=== PATIENT | female | born 1960 | race Two or more races ===

== ENCOUNTER 2021-08-14 16:11 | Inpatient (IN) | payer OTHER ==
[2021-08-14] MEDS ORDERED: IBUPROFEN 400 MG TABLET (FP) PO PRN (18:34)
[2021-08-14] MEDS ORDERED: MAGNESIUM CITRATE 300 ML BOTTLE PO PRN (18:34)
[2021-08-14] MEDS ORDERED: METHOCARBAMOL 500 MG TABLET PO PRN (18:34)
[2021-08-14] MEDS ORDERED: MAGNESIUM HYDROX 2400MG/30ML ORAL SUSPENSION 30 ML CUP PO PRN (18:34)
[2021-08-14] MEDS ORDERED: BISMUTH SUBSALICYLATE 524 MG/30 ML PO PRN (18:34)
[2021-08-14] MEDS ORDERED: MAG HYDROX/AL HYDROX/SIMETH 30 ML UNIT-DOSE CUP PO PRN (18:34)
[2021-08-14] MEDS ORDERED: MENTHOL/PHENOL 1 EACH UD MM PRN (18:34)
[2021-08-14] MEDS ORDERED: ONDANSETRON *ODT* 4 MG TABLET SL PRN (18:34)
[2021-08-14] MEDS ORDERED: ACETAMINOPHEN 325 MG TABLET (FP) PO PRN ×2 (18:34)
[2021-08-14] MEDS ORDERED: hydrOXYzine PAMOATE 25 MG CAPSULE (FP) PO ONE (21:03)
[2021-08-14] MEDS: hydrOXYzine PAMOATE 25 MG CAPSULE (FP) PO PRN ×2 (21:15→22:15)
[2021-08-14 21:31] VITALS: BMI 25.7
[2021-08-14] MEDS ORDERED: MELATONIN 5 MG TABLETS PO SCH (22:00)
[2021-08-14] MEDS ORDERED: THIAMINE HCL 100 MG TABLET (FP) PO SCH (22:00)
[2021-08-15] MEDS ORDERED: hydrOXYzine PAMOATE 50 MG CAPSULE (FP) PO ONE (00:16)
[2021-08-15] MEDS ORDERED: NITROGLYCERIN SUBLINGUAL 1/150 0.4 MG TAB SL ONE (01:11)
[2021-08-15 02:27] VITALS: BP 176/99; PULSE 81; TEMP 97.7
[2021-08-15] MEDS ORDERED: PRENATAL VITAMINS W/ FOLIC ACID TABLET (FP) PO SCH (10:00)
== END 2021-08-15 07:42 | disposition short-term general hospital (02) | DRG 897 ==
LOC: YASAS 16:11 → Y3N 21:03
PROVIDERS: ADMIT Allergy & Immunology; ATTEND Allergy & Immunology
PROC: HZ2ZZZZ Detoxification Services for Substance Abuse Treatment (ICD-10-PCS; principal; 2021-08-14)
DX: F13.230 Sedative, hypnotic or anxiolytic dependence with withdrawal, uncomplicated (principal); F17.210 Nicotine dependence, cigarettes, uncomplicated; F41.9 Anxiety disorder, unspecified; F32.9 Major depressive disorder, single episode, unspecified; I10 Essential (primary) hypertension; E11.9 Type 2 diabetes mellitus without complications; R07.9 Chest pain, unspecified; R00.2 Palpitations
CPT/HCPCS: 82962; 93005; 93010; C9803; U0003; U0005

== ENCOUNTER 2021-08-15 01:47 | Inpatient (IN) | payer OTHER ==
[2021-08-15 01:59] VITALS: BMI 27.3
[2021-08-15 02:27] LABS: PH,URINE 5.5 (5.0-8.0); URINE APPEARANCE Error; URINE BILIRUBIN NEGATIVE (NEGATIVE); URINE COLOR YELLOW; URINE GLUCOSE (UA) 2+ (NEGATIVE); URINE KETONE TRACE (NEGATIVE); URINE LEUK ESTERASE NEGATIVE (NEGATIVE); URINE NITRITE NEGATIVE (NEGATIVE); URINE PROTEIN NEGATIVE (NEGATIVE); URINE UROBILINOGEN 0.2 mg/dL (0.2-1.0)
[2021-08-15 02:31] LABS: BASO % 0.5 % (0-2.0); EOS % 0.4 % (0-4.5); HEMATOCRIT 32.9 % (32.4-45.2); HEMOGLOBIN 10.6 GM/dL (10.7-15.3); LYMPH % 18.3 % (8-40); MCH 20.3 pg (25.7-33.7); MCHC 32.2 g/dl (32.0-36.0); MEAN CELL VOLUME 62.9 fl (80-96); MEAN PLT VOLUME 8.7 fl (7.5-11.1); MONO % 6.3 % (3.8-10.2); NEUT % 74.5 % (42.8-82.8); PLATELET COUNT 316 10^3/uL (134-434); RBC 5.22 M/mm3 (3.60-5.2); RDW 21.4 % (11.6-15.6); WHITE BLOOD COUNT 6.5 K/mm3 (4.0-10.0)
[2021-08-15] MEDS ORDERED: MAG HYDROX/AL HYDROX/SIMETH 30 ML UNIT-DOSE CUP PO ONE (02:39)
[2021-08-15] MEDS ORDERED: MAG HYDROX/AL HYDROX/SIMETH 30 ML UNIT-DOSE CUP ONE (02:44)
[2021-08-15 02:49] LABS: CHLORIDE 107 mmol/L (98-107); SODIUM 139 mmol/L (136-145)
[2021-08-15 02:51] LABS: CALCIUM 8.6 mg/dL (8.5-10.1)
[2021-08-15 02:52] LABS: ALBUMIN 3.5 g/dl (3.4-5.0); ANION GAP 7 MMOL/L (8-16); BLOOD UREA NITROGEN 9.1 mg/dL (7-18); CO2 25 mmol/L (21-32); GLUCOSE,RANDOM 276 mg/dL (74-106); MAGNESIUM 1.9 mg/dL (1.8-2.4)
[2021-08-15 02:55] LABS: CREATININE 0.9 mg/dL (0.55-1.3); SGOT/AST 8 U/L (15-37); SGPT/ALT 13 U/L (13-61)
[2021-08-15 02:57] LABS: BILIRUBIN,TOTAL 0.4 mg/dL (0.2-1)
[2021-08-15] MEDS ORDERED: LORazepam 2 MG/ML SDV VIAL IVPUSH ONE (02:57)
[2021-08-15 02:58] LABS: ALK PHOS 86 U/L (45-117)
[2021-08-15] MEDS ORDERED: LORazepam 2 MG/ML SDV VIAL ONE ×3 (02:58→11:42)
[2021-08-15 03:00] LABS: N-TERMINAL BNP 162.5 pg/ml (5-125)
[2021-08-15 03:02] LABS: INR 0.95 (0.83-1.09); PROTHROMBIN TIME (PATIENT) 11.5 SEC (9.7-13.0)
[2021-08-15 03:34] LABS: OPIATES, URI NEGATIVE (NEGATIVE); PHENCYCLIDINE,URINE NEGATIVE (NEGATIVE)
[2021-08-15 03:35] LABS: METHADONE, UR NEGATIVE (NEGATIVE); URINE BARBITURATES NEGATIVE (NEGATIVE); URINE BENZODIAZEPINES NEGATIVE (NEGATIVE)
[2021-08-15 03:46] LABS: ANISOCYTOSIS 2+; MACROCYTOSIS 0; OVALOCYTE 1+; PLATELET ESTIMATE NORMAL; ROULEAU 1+
[2021-08-15 03:54] LABS: COCAINE, UR NEGATIVE (NEGATIVE); URINE AMPHETAMINES NEGATIVE (NEGATIVE)
[2021-08-15] MEDS ORDERED: ACETAMINOPHEN 325 MG TABLET (FP) PO ONE (04:43)
[2021-08-15] MEDS ORDERED: SODIUM CHLORIDE 0.9% 500 ML INFUS.BAG IV ONE (04:43)
[2021-08-15] MEDS ORDERED: ACETAMINOPHEN 325 MG TABLET (FP) ONE ×2 (05:01→14:37)
[2021-08-15] MEDS ORDERED: FOLIC ACID INJECTION - 1 MG, THIAMINE HCL 100 MG, MULTIVIT INJECTION ADULT 10 ML in SOD... IVPB ONE (06:34)
[2021-08-15] MEDS ORDERED: IBUPROFEN 600 MG TABLET (FP) PO ONE ×2 (06:44→06:48)
[2021-08-15] MEDS ORDERED: ENOXAPARIN NA (PORCINE) 40 MG/0.4 ML DISP.SYRIN SQ ONE (07:19)
[2021-08-15] MEDS: LORazepam 2 MG/ML SDV VIAL IVPUSH PRN ×2 (07:56→12:05)
[2021-08-15] MEDS: INSULIN SLIDING SCALE (NOVOLOG) 1 VIAL SQ SCH ×4 (08:05→23:07)
[2021-08-15] MEDS ORDERED: INSULIN SLIDING SCALE (NOVOLOG) 1 VIAL SQ ONE (08:22)
[2021-08-15] MEDS: ENOXAPARIN NA (PORCINE) 40 MG/0.4 ML DISP.SYRIN SQ SCH (09:13)
[2021-08-15] MEDS: NICOTINE 7 MG/24 HOURS TOPICAL PATCH TD SCH (10:30)
[2021-08-15 10:50] LABS: BASO % 0.3 % (0-2.0); EOS % 0.5 % (0-4.5); HEMATOCRIT 32.6 % (32.4-45.2); HEMOGLOBIN 10.5 GM/dL (10.7-15.3); LYMPH % 28.1 % (8-40); MCH 20.6 pg (25.7-33.7); MCHC 32.2 g/dl (32.0-36.0); MEAN PLT VOLUME 8.7 fl (7.5-11.1); MONO % 6.9 % (3.8-10.2); NEUT % 64.2 % (42.8-82.8); PLATELET COUNT 296 10^3/uL (134-434); RBC 5.09 M/mm3 (3.60-5.2); RDW 21.7 % (11.6-15.6); WHITE BLOOD COUNT 5.7 K/mm3 (4.0-10.0)
[2021-08-15 11:27] LABS: PHOSPHOROUS 3.1 mg/dL (2.5-4.9)
[2021-08-15] MEDS ORDERED: LORazepam 1 MG TABLET PO PRN (13:12)
[2021-08-15] MEDS ORDERED: ACETAMINOPHEN 325 MG TABLET (FP) PO PRN (14:24)
[2021-08-15] MEDS ORDERED: LORazepam 1 MG TABLET ONE ×3 (14:37→22:59)
[2021-08-15] MEDS: LORazepam 2 MG TABLET PO SCH ×2 (16:27→23:04)
[2021-08-15] MEDS ORDERED: MELATONIN 5 MG TABLETS ONE (22:00)
[2021-08-15] MEDS ORDERED: MELATONIN 1 MG TABLET PO SCH (22:00)
[2021-08-16] MEDS ORDERED: LORazepam 1 MG TABLET ONE ×4 (04:06→16:12)
[2021-08-16] MEDS: LORazepam 2 MG TABLET PO SCH ×4 (04:14→16:17)
[2021-08-16 06:55] LABS: BASO % 0.6 % (0-2.0); HEMATOCRIT 33.8 % (32.4-45.2); LYMPH % 33.7 % (8-40); MCH 20.5 pg (25.7-33.7); MCHC 32.6 g/dl (32.0-36.0); MEAN CELL VOLUME 62.8 fl (80-96); MEAN PLT VOLUME 8.7 fl (7.5-11.1); MONO % 8.1 % (3.8-10.2); NEUT % 56.6 % (42.8-82.8); PLATELET COUNT 290 10^3/uL (134-434); RBC 5.38 M/mm3 (3.60-5.2); RDW 22.4 % (11.6-15.6); WHITE BLOOD COUNT 5.5 K/mm3 (4.0-10.0)
[2021-08-16 07:18] LABS: CALCIUM 9.2 mg/dL (8.5-10.1)
[2021-08-16 07:19] LABS: BLOOD UREA NITROGEN 6.6 mg/dL (7-18); MAGNESIUM 1.9 mg/dL (1.8-2.4)
[2021-08-16 07:22] LABS: ALBUMIN 3.8 g/dl (3.4-5.0); CHOLESTEROL 165 mg/dL (50-200); CREATININE 0.8 mg/dL (0.55-1.3)
[2021-08-16 07:23] LABS: BILIRUBIN,TOTAL 0.5 mg/dL (0.2-1); TOT PROT 7.4 g/dl (6.4-8.2); TRIGLYCERIDES 96 mg/dL (0-150)
[2021-08-16 07:26] LABS: LDL CHOLESTEROL (ONLY SJRH) 65 mg/dL (5-100)
[2021-08-16 07:27] LABS: HDL CHOLESTEROL 74 mg/dL (40-60)
[2021-08-16] MEDS: INSULIN SLIDING SCALE (NOVOLOG) 1 VIAL SQ SCH ×2 (08:06→12:24)
[2021-08-16] MEDS ORDERED: PT OWN MED DRAWER 7, Y5N ONE (10:22)
[2021-08-16] MEDS ORDERED: ENOXAPARIN NA (PORCINE) 40 MG/0.4 ML DISP.SYRIN SQ ONE (10:22)
[2021-08-16] MEDS: NICOTINE 7 MG/24 HOURS TOPICAL PATCH TD SCH (10:33)
[2021-08-16] MEDS: ENOXAPARIN NA (PORCINE) 40 MG/0.4 ML DISP.SYRIN SQ SCH (10:33)
[2021-08-16 16:22] VITALS: BP 150/90; PULSE 88; TEMP 97.7
[2021-08-17] MEDS ORDERED: LORazepam 1 MG TABLET PO SCH (05:00)
[2021-08-18] MEDS ORDERED: LORazepam 0.5 MG TABLET PO PRN
[2021-08-18] MEDS ORDERED: LORazepam 0.5 MG TABLET PO SCH (05:00)
[2021-08-19] MEDS ORDERED: LORazepam 0.5 MG TABLET PO ONE (05:00)
== END 2021-08-16 16:21 | disposition other institution (70) | DRG 897 ==
LOC: JER 01:47 → JERBED 03:18 → OBSVTOIN 05:36
PROVIDERS: ADMIT Internal Medicine; ATTEND Nurse Practitioner Family
DX: F13.230 Sedative, hypnotic or anxiolytic dependence with withdrawal, uncomplicated (principal); I10 Essential (primary) hypertension; F41.9 Anxiety disorder, unspecified; E11.65 Type 2 diabetes mellitus with hyperglycemia; D64.9 Anemia, unspecified; E78.5 Hyperlipidemia, unspecified; F32.9 Major depressive disorder, single episode, unspecified; G47.00 Insomnia, unspecified; R00.2 Palpitations; R07.89 Other chest pain; Z79.84 Long term (current) use of oral hypoglycemic drugs; F17.200 Nicotine dependence, unspecified, uncomplicated
CPT/HCPCS: 36415; 71045-TC-FY; 80053; 80061; 80307; 81003; 82550; 82607; 82746; 82962; 83036; 83735; 83880; 84100; 84484; 85025; 85610; 85730; 86850; 86900; 86901; 87086; 93005; 93010; 93306-TC; 99285-25; C9803; G0378; U0003; U0005

== ENCOUNTER 2021-12-06 12:11 | Emergency (ER) | payer OTHER ==
[2021-12-06 12:46] VITALS: TEMP 98.3; BMI 23.5
[2021-12-06] MEDS ORDERED: ACETAMINOPHEN 1000 MG/100 ML BAG IVPB ONE (16:08)
[2021-12-06 16:12] LABS: BASO % 0.3 % (0-2.0); EOS % 0.4 % (0-4.5); HEMATOCRIT 35.1 % (32.4-45.2); HEMOGLOBIN 11.2 GM/dL (10.7-15.3); LYMPH % 22.7 % (8-40); MCH 20.8 pg (25.7-33.7); MCHC 31.8 g/dl (32.0-36.0); MEAN CELL VOLUME 65.3 fl (80-96); MEAN PLT VOLUME 9.7 fl (7.5-11.1); MONO % 8.7 % (3.8-10.2); NEUT % 67.9 % (42.8-82.8); PLATELET COUNT 331 10^3/uL (134-434); RBC 5.37 M/mm3 (3.60-5.2); RDW 21.8 % (11.6-15.6); WHITE BLOOD COUNT 7.1 K/mm3 (4.0-10.0)
[2021-12-06 16:52] LABS: CHLORIDE 106 mmol/L (98-107); SODIUM 142 mmol/L (136-145)
[2021-12-06 16:53] LABS: CALCIUM 9.2 mg/dL (8.5-10.1)
[2021-12-06 16:55] LABS: ALBUMIN 3.6 g/dl (3.4-5.0); ANION GAP 10 MMOL/L (8-16); BLOOD UREA NITROGEN 8.2 mg/dL (7-18); CO2 26 mmol/L (21-32); GLUCOSE,RANDOM 134 mg/dL (74-106)
[2021-12-06 16:58] LABS: CREATININE 0.7 mg/dL (0.55-1.3); SGOT/AST 13 U/L (15-37); SGPT/ALT 17 U/L (13-61)
[2021-12-06] MEDS ORDERED: ACETAMINOPHEN INJECTION 100 ML IVPB ONE (16:58)
[2021-12-06 16:59] LABS: BILIRUBIN,TOTAL 0.4 mg/dL (0.2-1); TOT PROT 7.3 g/dl (6.4-8.2)
[2021-12-06 17:00] LABS: ALK PHOS 122 U/L (45-117)
[2021-12-06 20:06] VITALS: BP 128/74; PULSE 95
== END 2021-12-06 20:06 | disposition home or self-care (01) ==
LOC: JER 12:11
PROC: 3E033NZ Introduction of Analgesics, Hypnotics, Sedatives into Peripheral Vein, Percutaneous Approach (ICD-10-PCS; principal; 2021-12-06)
DX: M54.9 Dorsalgia, unspecified (principal); R00.2 Palpitations; R07.9 Chest pain, unspecified
CPT/HCPCS: 36415; 71045-TC-FY; 71275-TC; 80053; 84484; 85025; 93005; 93010; 99285-25; J0131; Q9967

== ENCOUNTER 2021-12-07 04:18 | Inpatient (IN) | payer OTHER ==
[2021-12-07 08:20] VITALS: BMI 25.9
[2021-12-07] MEDS ORDERED: MAG HYDROX/AL HYDROX/SIMETH 30 ML UNIT-DOSE CUP PO PRN (09:27)
[2021-12-07] MEDS ORDERED: MENTHOL/PHENOL 1 EACH UD MM PRN (09:27)
[2021-12-07] MEDS ORDERED: MAGNESIUM CITRATE 300 ML BOTTLE PO PRN (09:27)
[2021-12-07] MEDS ORDERED: MAGNESIUM HYDROX 2400MG/30ML ORAL SUSPENSION 30 ML CUP PO PRN (09:27)
[2021-12-07] MEDS ORDERED: NICOTINE 10 MG CARTRIDGE (INHALER) IH PRN (09:27)
[2021-12-07] MEDS ORDERED: ONDANSETRON *ODT* 4 MG TABLET SL PRN (09:27)
[2021-12-07] MEDS ORDERED: ACETAMINOPHEN 325 MG TABLET (FP) PO PRN ×2 (09:27)
[2021-12-07] MEDS ORDERED: BISMUTH SUBSALICYLATE 262 MG/15 ML BTL PO PRN (09:27)
[2021-12-07] MEDS: diazePAM 5 MG TABLET PO SCH ×4 (09:41→22:09)
[2021-12-07] MEDS ORDERED: INSULIN SLIDING SCALE (NOVOLOG) 1 VIAL SQ SCH (11:00)
[2021-12-07] MEDS: PRENATAL VITAMINS W/ FOLIC ACID TABLET (FP) PO SCH (11:56)
[2021-12-07] MEDS: hydrOXYzine PAMOATE 25 MG CAPSULE (FP) PO SCH ×4 (11:57→22:10)
[2021-12-07] MEDS: INSULIN SLIDING SCALE (NOVOLOG) 1 VIAL SQ SCH ×3 (11:58→22:10)
[2021-12-07] MEDS: METHOCARBAMOL 500 MG TABLET PO PRN (13:31)
[2021-12-07 14:44] LABS: HEMATOCRIT 33.5 % (32.4-45.2); HEMOGLOBIN 10.4 GM/dL (10.7-15.3); MCH 20.4 pg (25.7-33.7); MCHC 31.1 g/dl (32.0-36.0); MEAN CELL VOLUME 65.5 fl (80-96); MEAN PLT VOLUME 9.4 fl (7.5-11.1); PLATELET COUNT 298 10^3/uL (134-434); RBC 5.11 M/mm3 (3.60-5.2); RDW 21.9 % (11.6-15.6); WHITE BLOOD COUNT 5.6 K/mm3 (4.0-10.0)
[2021-12-07] MEDS: diazePAM 5 MG TABLET PO PRN (15:07)
[2021-12-07 15:08] LABS: ALBUMIN 3.6 g/dl (3.4-5.0)
[2021-12-07 15:10] LABS: BLOOD UREA NITROGEN 10.6 mg/dL (7-18); CALCIUM 9.1 mg/dL (8.5-10.1)
[2021-12-07 15:13] LABS: CREATININE 0.9 mg/dL (0.55-1.3)
[2021-12-07 15:15] LABS: BILIRUBIN,TOTAL 0.5 mg/dL (0.2-1)
[2021-12-07] MEDS: IBUPROFEN 400 MG TABLET (FP) PO PRN (16:36)
[2021-12-07] MEDS: MELATONIN 5 MG TABLETS PO SCH (22:10)
[2021-12-07] MEDS: THIAMINE HCL 100 MG TABLET (FP) PO SCH (22:10)
[2021-12-08] MEDS: diazePAM 5 MG TABLET PO PRN ×2 (00:53→15:14)
[2021-12-08] MEDS: METHOCARBAMOL 500 MG TABLET PO PRN ×2 (03:07→17:00)
[2021-12-08] MEDS: diazePAM 5 MG TABLET PO SCH ×3 (06:18→22:01)
[2021-12-08] MEDS: hydrOXYzine PAMOATE 25 MG CAPSULE (FP) PO SCH ×5 (06:18→22:01)
[2021-12-08] MEDS: INSULIN SLIDING SCALE (NOVOLOG) 1 VIAL SQ SCH ×4 (07:09→22:02)
[2021-12-08] MEDS: PRENATAL VITAMINS W/ FOLIC ACID TABLET (FP) PO SCH (10:23)
[2021-12-08] MEDS: IBUPROFEN 400 MG TABLET (FP) PO PRN (17:00)
[2021-12-08] MEDS: THIAMINE HCL 100 MG TABLET (FP) PO SCH (22:01)
[2021-12-08] MEDS: MELATONIN 5 MG TABLETS PO SCH (22:01)
[2021-12-09] MEDS: diazePAM 5 MG TABLET PO SCH ×2 (05:38→17:19)
[2021-12-09] MEDS: hydrOXYzine PAMOATE 25 MG CAPSULE (FP) PO SCH ×5 (05:38→21:44)
[2021-12-09] MEDS: METHOCARBAMOL 500 MG TABLET PO PRN ×2 (05:38→18:48)
[2021-12-09] MEDS: INSULIN SLIDING SCALE (NOVOLOG) 1 VIAL SQ SCH ×4 (07:50→21:44)
[2021-12-09] MEDS: PRENATAL VITAMINS W/ FOLIC ACID TABLET (FP) PO SCH (10:09)
[2021-12-09] MEDS ORDERED: INSULIN SLIDING SCALE (NOVOLOG) 1 VIAL SQ ONE (10:57)
[2021-12-09] MEDS: diazePAM 5 MG TABLET PO PRN ×2 (13:21→18:48)
[2021-12-09] MEDS: IBUPROFEN 400 MG TABLET (FP) PO PRN ×2 (13:22→19:20)
[2021-12-09] MEDS: THIAMINE HCL 100 MG TABLET (FP) PO SCH (21:44)
[2021-12-09] MEDS: MELATONIN 5 MG TABLETS PO SCH (21:44)
[2021-12-10] MEDS: diazePAM 5 MG TABLET PO PRN (02:27)
[2021-12-10] MEDS ORDERED: diazePAM 5 MG TABLET PO ONE (06:00)
[2021-12-10] MEDS: METHOCARBAMOL 500 MG TABLET PO PRN (06:06)
[2021-12-10] MEDS: hydrOXYzine PAMOATE 25 MG CAPSULE (FP) PO SCH (06:06)
[2021-12-10] MEDS: INSULIN SLIDING SCALE (NOVOLOG) 1 VIAL SQ SCH (07:48)
[2021-12-10 09:10] VITALS: BP 140/74; PULSE 78; TEMP 98.2
== END 2021-12-10 09:50 | disposition home or self-care (01) | DRG 897 ==
LOC: YASAS 04:18 → Y3N 10:49
PROVIDERS: ADMIT Allergy & Immunology; ATTEND Allergy & Immunology
PROC: HZ2ZZZZ Detoxification Services for Substance Abuse Treatment (ICD-10-PCS; principal; 2021-12-07)
DX: F10.230 Alcohol dependence with withdrawal, uncomplicated (principal); F13.20 Sedative, hypnotic or anxiolytic dependence, uncomplicated; F17.210 Nicotine dependence, cigarettes, uncomplicated; F19.24 Other psychoactive substance dependence with psychoactive substance-induced mood disorder; F41.9 Anxiety disorder, unspecified; D64.9 Anemia, unspecified; I10 Essential (primary) hypertension; E11.65 Type 2 diabetes mellitus with hyperglycemia; Z79.4 Long term (current) use of insulin; R07.9 Chest pain, unspecified
CPT/HCPCS: 36415; 80053; 82962; 85027; 86780; 93005; 93010; C9803; U0003; U0005

== ENCOUNTER 2022-05-10 13:08 | Inpatient (IN) | payer OTHER ==
[2022-05-10 13:57] VITALS: BMI 24.2
[2022-05-11] MEDS ORDERED: NICOTINE 10 MG CARTRIDGE (INHALER) IH PRN (01:50)
[2022-05-11] MEDS ORDERED: LOPERAMIDE HCL 2 MG CAPSULE PO PRN (01:50)
[2022-05-11] MEDS ORDERED: MAGNESIUM CITRATE 300 ML BOTTLE PO PRN (01:50)
[2022-05-11] MEDS ORDERED: ACETAMINOPHEN 325 MG TABLET (FP) PO PRN ×2 (01:50)
[2022-05-11] MEDS ORDERED: guaiFENesin 200 MG/10 ML 10 ML UNIT-DOSE CUPS PO PRN (01:50)
[2022-05-11] MEDS ORDERED: IBUPROFEN 400 MG TABLET (FP) PO PRN (01:50)
[2022-05-11] MEDS ORDERED: DICYCLOMINE HCL 10 MG CAPSULE PO PRN (01:50)
[2022-05-11] MEDS ORDERED: MAGNESIUM HYDROX 2400MG/30ML ORAL SUSPENSION 30 ML CUP PO PRN (01:50)
[2022-05-11] MEDS ORDERED: BENZOCAINE/MENTHOL (CHLORASEPTIC ) LOZENGE MM PRN (01:50)
[2022-05-11] MEDS ORDERED: BISMUTH SUBSALICYLATE 524 MG/30 ML PO PRN (01:50)
[2022-05-11] MEDS ORDERED: NICOTINE POLACRILEX 2 MG GUM BUC PRN (01:50)
[2022-05-11] MEDS ORDERED: MAG HYDROX/AL HYDROX/SIMETH 30 ML UNIT-DOSE CUP PO PRN (01:50)
[2022-05-11] MEDS ORDERED: ONDANSETRON *ODT* 4 MG TABLET SL PRN (01:50)
[2022-05-11] MEDS ORDERED: P-EPHED 60MG/TRIPROLIDI 2.5MG TABLET PO PRN (01:50)
[2022-05-11] MEDS ORDERED: LOSARTAN 50MG/HCTZ 12.5MG 1 TAB PO ONE (02:18)
[2022-05-11] MEDS ORDERED: LOSARTAN POTASSIUM 50 MG TABLET PO ONE (03:00)
[2022-05-11] MEDS ORDERED: HYDROCHLOROTHIAZIDE 12.5 MG CAPSULE (FP) PO ONE (03:00)
[2022-05-11] MEDS: METHOCARBAMOL 500 MG TABLET PO PRN ×2 (03:16→17:52)
[2022-05-11] MEDS: hydrOXYzine PAMOATE 25 MG CAPSULE (FP) PO PRN (03:16)
[2022-05-11] MEDS: IBUPROFEN 600 MG TABLET (FP) PO PRN ×2 (03:17→14:42)
[2022-05-11] MEDS ORDERED: ALBUTEROL SO4 2.5/IPRATROPIUM 0.5 INH SOL 3 ML VIAL.NEB. NEB PRN (09:43)
[2022-05-11] MEDS ORDERED: ALBUTEROL SO4 0.083% IH SOL 2.5 MG/3 ML VIAL.NEB. NEB ONE (09:46)
[2022-05-11] MEDS ORDERED: ALBUTEROL SO4 2.5/IPRATROPIUM 0.5 INH SOL 3 ML VIAL.NEB. NEB ONE (10:00)
[2022-05-11] MEDS: diazePAM 5 MG TABLET PO SCH ×3 (10:04→22:10)
[2022-05-11] MEDS: PRENATAL VITAMINS W/ FOLIC ACID TABLET (FP) PO SCH (10:04)
[2022-05-11] MEDS: diazePAM 5 MG TABLET PO PRN (13:38)
[2022-05-11] MEDS: GABAPENTIN 300 MG CAPSULE PO SCH ×2 (14:59→22:10)
[2022-05-11] MEDS ORDERED: INSULIN SLIDING SCALE (NOVOLOG) 1 VIAL SQ ONE (17:03)
[2022-05-11] MEDS: INSULIN (NOVOLOG) ASPART 100 UNITS/ML 10ML VIAL SQ SCH (17:09)
[2022-05-11] MEDS: metFORMIN HCL 500 MG TABLET (FP) PO SCH (17:10)
[2022-05-11] MEDS: NICOTINE 21 MG/24 HOURS TOPICAL PATCH TD SCH (19:01)
[2022-05-11] MEDS ORDERED: PATIENT'S OWN MEDICATION (NON-FORMULARY) (Linagliptin/Metformin Hcl [Jentadueto 2.5 Mg-100 PO SCH (22:00)
[2022-05-11] MEDS: ATORVASTATIN CA 10 MG TABLET (FP) PO SCH (22:10)
[2022-05-11] MEDS: QUEtiapine FUMARATE 200 MG TABLET PO SCH (22:10)
[2022-05-11] MEDS: THIAMINE HCL 100 MG TABLET (FP) PO SCH (22:10)
[2022-05-11] MEDS: MELATONIN 5 MG TABLETS PO SCH (22:10)
[2022-05-12] MEDS: diazePAM 5 MG TABLET PO SCH ×4 (06:17→22:15)
[2022-05-12] MEDS: metFORMIN HCL 500 MG TABLET (FP) PO SCH ×2 (06:17→18:11)
[2022-05-12] MEDS: GABAPENTIN 300 MG CAPSULE PO SCH ×3 (06:17→22:15)
[2022-05-12] MEDS: INSULIN (NOVOLOG) ASPART 100 UNITS/ML 10ML VIAL SQ SCH ×3 (06:19→18:13)
[2022-05-12] MEDS ORDERED: INSULIN SLIDING SCALE (NOVOLOG) 1 VIAL SQ ONE (06:20)
[2022-05-12 10:28] LABS: CALCIUM 9.2 mg/dL (8.5-10.1)
[2022-05-12 10:29] LABS: BLOOD UREA NITROGEN 10.5 mg/dL (7-18)
[2022-05-12 10:31] LABS: CREATININE 0.8 mg/dL (0.55-1.3)
[2022-05-12 10:33] LABS: BILIRUBIN,TOTAL 0.4 mg/dL (0.2-1); TOT PROT 5.9 g/dl (6.4-8.2)
[2022-05-12] MEDS: PANTOPRAZOLE 40 MG TABLET PO SCH (10:46)
[2022-05-12] MEDS: NICOTINE 21 MG/24 HOURS TOPICAL PATCH TD SCH (10:46)
[2022-05-12] MEDS: PRENATAL VITAMINS W/ FOLIC ACID TABLET (FP) PO SCH (10:46)
[2022-05-12] MEDS ORDERED: SODIUM POLYSTYRENE SULFONATE 15 GM/60 ML BOTTLE PO ONE (11:50)
[2022-05-12] MEDS: METHOCARBAMOL 500 MG TABLET PO PRN (19:19)
[2022-05-12] MEDS: ATORVASTATIN CA 10 MG TABLET (FP) PO SCH (22:15)
[2022-05-12] MEDS: QUEtiapine FUMARATE 200 MG TABLET PO SCH (22:15)
[2022-05-12] MEDS: THIAMINE HCL 100 MG TABLET (FP) PO SCH (22:15)
[2022-05-12] MEDS: MELATONIN 5 MG TABLETS PO SCH (22:16)
[2022-05-13] MEDS: diazePAM 5 MG TABLET PO SCH ×3 (06:03→22:08)
[2022-05-13] MEDS: GABAPENTIN 300 MG CAPSULE PO SCH ×3 (06:04→22:08)
[2022-05-13] MEDS: metFORMIN HCL 500 MG TABLET (FP) PO SCH ×2 (06:43→17:34)
[2022-05-13] MEDS: INSULIN (NOVOLOG) ASPART 100 UNITS/ML 10ML VIAL SQ SCH ×3 (06:43→17:34)
[2022-05-13] MEDS: PRENATAL VITAMINS W/ FOLIC ACID TABLET (FP) PO SCH (10:31)
[2022-05-13] MEDS: PANTOPRAZOLE 40 MG TABLET PO SCH (10:31)
[2022-05-13] MEDS: NICOTINE 21 MG/24 HOURS TOPICAL PATCH TD SCH (10:31)
[2022-05-13] MEDS: diazePAM 5 MG TABLET PO PRN (10:32)
[2022-05-13] MEDS: METHOCARBAMOL 500 MG TABLET PO PRN ×2 (10:32→16:02)
[2022-05-13] MEDS: IBUPROFEN 600 MG TABLET (FP) PO PRN ×2 (14:18→22:09)
[2022-05-13] MEDS: MELATONIN 5 MG TABLETS PO SCH (22:08)
[2022-05-13] MEDS: QUEtiapine FUMARATE 200 MG TABLET PO SCH (22:08)
[2022-05-13] MEDS: THIAMINE HCL 100 MG TABLET (FP) PO SCH (22:08)
[2022-05-13] MEDS: ATORVASTATIN CA 10 MG TABLET (FP) PO SCH (22:08)
[2022-05-14] MEDS: GABAPENTIN 300 MG CAPSULE PO SCH ×3 (07:08→22:12)
[2022-05-14] MEDS: diazePAM 5 MG TABLET PO SCH ×2 (07:08→17:40)
[2022-05-14] MEDS: metFORMIN HCL 500 MG TABLET (FP) PO SCH ×2 (07:09→17:38)
[2022-05-14] MEDS: INSULIN (NOVOLOG) ASPART 100 UNITS/ML 10ML VIAL SQ SCH ×3 (07:36→17:39)
[2022-05-14] MEDS: IBUPROFEN 600 MG TABLET (FP) PO PRN (10:09)
[2022-05-14] MEDS: PRENATAL VITAMINS W/ FOLIC ACID TABLET (FP) PO SCH (10:09)
[2022-05-14] MEDS: NICOTINE 21 MG/24 HOURS TOPICAL PATCH TD SCH (10:10)
[2022-05-14] MEDS: PANTOPRAZOLE 40 MG TABLET PO SCH (11:31)
[2022-05-14] MEDS: LOSARTAN 50MG/HCTZ 12.5MG 1 TAB PO SCH (18:32)
[2022-05-14] MEDS: hydrOXYzine PAMOATE 25 MG CAPSULE (FP) PO PRN (19:20)
[2022-05-14] MEDS ORDERED: LACTULOSE 20 GM/30 ML UDC (FOR ORAL USE ONLY) PO ONE (20:28)
[2022-05-14] MEDS ORDERED: DOCUSATE SODIUM 100 MG CAPSULE (FP) PO ONE (22:00)
[2022-05-14] MEDS: QUEtiapine FUMARATE 200 MG TABLET PO SCH (22:12)
[2022-05-14] MEDS: ATORVASTATIN CA 10 MG TABLET (FP) PO SCH (22:12)
[2022-05-14] MEDS: THIAMINE HCL 100 MG TABLET (FP) PO SCH (22:12)
[2022-05-14] MEDS: MELATONIN 5 MG TABLETS PO SCH (22:13)
[2022-05-15] MEDS: hydrOXYzine PAMOATE 25 MG CAPSULE (FP) PO PRN ×2 (05:51→10:22)
[2022-05-15] MEDS: GABAPENTIN 300 MG CAPSULE PO SCH (05:51)
[2022-05-15] MEDS ORDERED: diazePAM 5 MG TABLET PO ONE (06:00)
[2022-05-15] MEDS: metFORMIN HCL 500 MG TABLET (FP) PO SCH (06:09)
[2022-05-15] MEDS: INSULIN (NOVOLOG) ASPART 100 UNITS/ML 10ML VIAL SQ SCH ×2 (06:10→11:51)
[2022-05-15] MEDS: LOSARTAN 50MG/HCTZ 12.5MG 1 TAB PO SCH (10:22)
[2022-05-15] MEDS: NICOTINE 21 MG/24 HOURS TOPICAL PATCH TD SCH (10:22)
[2022-05-15] MEDS: PANTOPRAZOLE 40 MG TABLET PO SCH (10:24)
[2022-05-15] MEDS: PRENATAL VITAMINS W/ FOLIC ACID TABLET (FP) PO SCH (10:24)
[2022-05-15 13:12] VITALS: BP 121/67; PULSE 8; TEMP 97.5
== END 2022-05-15 13:55 | disposition home or self-care (01) | DRG 897 ==
LOC: YASAS 13:08 → Y3N 05-11 01:58
PROVIDERS: ADMIT Allergy & Immunology; ATTEND Surgery
PROC: HZ2ZZZZ Detoxification Services for Substance Abuse Treatment (ICD-10-PCS; principal; 2022-05-11)
DX: F13.230 Sedative, hypnotic or anxiolytic dependence with withdrawal, uncomplicated (principal); F19.280 Other psychoactive substance dependence with psychoactive substance-induced anxiety disorder; F17.210 Nicotine dependence, cigarettes, uncomplicated; F41.9 Anxiety disorder, unspecified; F19.24 Other psychoactive substance dependence with psychoactive substance-induced mood disorder; I10 Essential (primary) hypertension; E78.5 Hyperlipidemia, unspecified; E11.9 Type 2 diabetes mellitus without complications; Z79.4 Long term (current) use of insulin; Z56.0 Unemployment, unspecified
CPT/HCPCS: 36415; 71046-TC-FY; 80053; 82962; 84132; 84443; 84484; 85025; 86780; 93005; 93010; 94640; 99285-25; C9803-CS; U0003; U0005

== ENCOUNTER 2022-05-10 15:50 | Emergency (ER) | payer OTHER ==
[2022-05-10 16:07] VITALS: TEMP 98.6; BMI 24.2
[2022-05-10 18:07] LABS: BASO % 0.2 % (0-2.0); EOS % 0.5 % (0-4.5); HEMATOCRIT 32.7 % (32.4-45.2); HEMOGLOBIN 10.2 GM/dL (10.7-15.3); LYMPH % 25.9 % (8-40); MCHC 31.3 g/dl (32.0-36.0); MEAN CELL VOLUME 60.2 fl (80-96); MONO % 7.7 % (3.8-10.2); NEUT % 65.7 % (42.8-82.8); PLATELET COUNT 317 10^3/uL (134-434); RBC 5.43 M/mm3 (3.60-5.2); RDW 22.4 % (11.6-15.6); WHITE BLOOD COUNT 8.5 K/mm3 (4.0-10.0)
[2022-05-10 18:13] LABS: MCH 18.9 pg (25.7-33.7)
[2022-05-10 18:23] LABS: CALCIUM 8.3 mg/dL (8.5-10.1)
[2022-05-10 18:24] LABS: ALBUMIN 3.1 g/dl (3.4-5.0); BLOOD UREA NITROGEN 9.6 mg/dL (7-18)
[2022-05-10 18:26] LABS: CREATININE 0.8 mg/dL (0.55-1.3)
[2022-05-10 18:28] LABS: BILIRUBIN,TOTAL 0.3 mg/dL (0.2-1); TOT PROT 6.4 g/dl (6.4-8.2)
[2022-05-10 19:20] LABS: ANISOCYTOSIS 2+; MACROCYTOSIS 1+; PLATELET ESTIMATE NORMAL
[2022-05-10 21:04] VITALS: BP 148/80; PULSE 68
[2022-05-10] MEDS ORDERED: ALPRAZolam 0.25 MG TABLET PO ONE (21:16)
[2022-05-10] MEDS ORDERED: ALPRAZolam 1 MG TABLET ONE (21:18)
== END 2022-05-10 23:49 | disposition home or self-care (01) ==
LOC: JER 15:50
DX: R00.2 Palpitations (principal); F41.9 Anxiety disorder, unspecified
CPT/HCPCS: 36415; 71046-TC-FY; 80053; 82962; 84443; 84484; 85025; 93005; 93010